=== PATIENT | female | born 1940 | race Hispanic/Latino ===

== ENCOUNTER 2019-04-11 13:00 | Inpatient (IN) | payer OTHER ==
[~2019-04-11] VITALS: Ht 152.4 cm; Wt 50.3 kg
[2019-04-11 13:02] VITALS: BP 135/69
[2019-04-11 13:23] LABS: INR 0.99 (0.85-1.15); PARTIAL THROMBOPLASTIN TIME 26.8 SEC (26.3-35.5); PROTHROMBIN TIME 10.4 SEC (9.6-11.6)
[2019-04-11] MEDS ORDERED: ATOR10 PO (14:08)
[2019-04-11] MEDS ORDERED: LEVO75TA10 PO (14:08)
[2019-04-11] MEDS ORDERED: DULO30CA52 PO (14:08)
[2019-04-11] MEDS ORDERED: LATA7.5D OU (14:08)
[2019-04-11] MEDS ORDERED: PROP10DR4 OU (14:08)
[2019-04-11] MEDS ORDERED: OMEG-108 PO (14:08)
[2019-04-11] MEDS ORDERED: GABA-529 PO ×2 (14:08)
[2019-04-17] VITALS (24 sets, daily range): BP systolic 86–134; BP diastolic 44–73
[2019-04-17] MEDS ORDERED: LACTATED RINGERS 1000ML 1,000 ML IV ONE (10:00)
[2019-04-17] MEDS: CEFAZOLIN SODIUM 1 GM VIAL ONE ×2 (10:00→13:20)
[2019-04-17] MEDS ORDERED: TRANEXAMIC ACID 1000MG/10ML IV ONE ×2 (10:44→11:00)
[2019-04-17] MEDS ORDERED: VANCOMYCIN HCL 1 GM VIAL ONE (11:13)
[2019-04-17] MEDS ORDERED: LIDOCAINE PF 2% 5ML ABBOJECT ONE (12:56)
[2019-04-17] MEDS ORDERED: DEXAMETHASONE SOD PHOSPHATE 10MG/ML 1ML VIAL ONE (12:57)
[2019-04-17] MEDS ORDERED: PROPOFOL 10 MG/ML 20ML VIAL IV ONE (12:57)
[2019-04-17] MEDS ORDERED: MIDAZOLAM HCL 1 MG/ML 2ML VIAL ONE (12:57)
[2019-04-17] MEDS ORDERED: ONDANSETRON HCL 4 MG/2 ML VIAL ONE (12:57)
[2019-04-17] MEDS ORDERED: FENTANYL CITRATE PF 50 MCG/1 ML 2ML VIAL ONE (12:58)
[2019-04-17] MEDS ORDERED: ROPIVACAINE 0.5% 5MG/ML 30ML IJ ONE (13:13)
--- NOTE | 2019-04-17 13:33 | NUR ---
pt has jason cataract lens Addendum: 04/17/19 at 1338 by BRICE DOS SANTOS RN RN Amended: Links added.
[2019-04-17] MEDS ORDERED: EPHEDRINE SULFATE 50 MG/ML AMPULE ONE (13:37)
[2019-04-17] MEDS ORDERED: ROCURONIUM 10MG/1ML SYR 10 MG/ML ML ONE (13:39)
[2019-04-17] MEDS ORDERED: NEOSTIGMINE 5MG/5ML SYR IV ONE (15:38)
[2019-04-17] MEDS ORDERED: GLYCOPYRROLATE 1 MG/5 ML SYRINGE ONE (15:38)
[2019-04-17] MEDS: SODIUM CHLORIDE 0.9% 1000ML 1,000 ML IV SCH ×3 (15:52→23:11)
[2019-04-17] MEDS ORDERED: ONDANSETRON HCL 4 MG/2 ML VIAL IVP PRN (16:00)
[2019-04-17] MEDS ORDERED: KETOROLAC TROMETHAMINE 15MG/ML IV PRN (16:00)
[2019-04-17] MEDS ORDERED: TRAMADOL HCL 50 MG TABLET PO PRN (16:00)
[2019-04-17] MEDS: ACETAMINOPHEN EXTRA STRENGTH 500 MG TABLET PO SCH ×2 (16:00→23:11)
[2019-04-17] MEDS ORDERED: MORPHINE SULFATE 4 MG/1ML SYG IVP PRN (16:00)
[2019-04-17] MEDS ORDERED: OXYCODONE HCL 5 MG TAB PO PRN (16:00)
[2019-04-17] MEDS ORDERED: ARTIFICAL TEARS SOL 15 ML OU PRN (16:00)
[2019-04-17] MEDS ORDERED: MEPERIDINE-PF 25 MG/ML SYG ONE (16:38)
[2019-04-17] MEDS: CEFAZOLIN SODIUM 1 GM VIAL IVP SCH (21:14)
[2019-04-17] MEDS: FAMOTIDINE 20MG TAB 20 MG TAB PO SCH (21:15)
[2019-04-17] MEDS: ASPIRIN 81 MG EC TAB PO SCH (21:15)
[2019-04-17] MEDS: LATANOPROST 2.5 ML DROPS OU SCH (21:16)
[2019-04-17] MEDS: GABAPENTIN 100 MG CAPSULE PO SCH (21:16)
[2019-04-18 04:00] VITALS: BP 116/53
[2019-04-18 04:01] LABS: HEMATOCRIT 29.3 % (36-48); MEAN CORPUSCULAR HEMOGLOBIN 30.3 pg (27.0-33.0); MEAN CORPUSCULAR HGB CONC 34.5 g/dL (32.0-36.0); MEAN CORPUSCULAR VOLUME 87.7 fL (79-99); PLATELET COUNT (AUTO) 262 K/uL (130-400); RED BLOOD CELL COUNT(AUTO) 3.34 MIL/uL (4.00-5.50); RED CELL DISTRIBUTION WIDTH 14.7 % (11.0-15.5); WHITE BLOOD COUNT (AUTO) 7.8 K/uL (4.8-10.8)
[2019-04-18 04:11] LABS: CREATININE 0.7 mg/dL (0.5-1.5); POTASSIUM 3.8 mmol/L (3.5-5.1)
[2019-04-18] MEDS: OXYCODONE HCL 5 MG TAB PO PRN (05:14)
[2019-04-18] MEDS: LEVOTHYROXINE 75 MCG TABLET PO SCH (05:14)
[2019-04-18] MEDS: CEFAZOLIN SODIUM 1 GM VIAL IVP SCH (05:14)
[2019-04-18 07:48] VITALS: BP 136/66
--- NOTE | 2019-04-18 08:08 | NUR ---
CALL RECD RE SNF CALL RECD FROM RN IN CONFERENCE WITH - WANTS TO KNOW WHICH SNFS ARE IN NETWORK. PT/FAMILY DO NOT WANT TO GO TO A SNF, BUT WANTS THE ORDER PLACED JUST IN CASE PT DOES NOT DO VERY WELL DURING PT. PT HAD DIFFICULTY THROUGH THE NIGHT - MAX ASSIST X2 ON BED ACUÑA FOR EXAMPLE, ADIVSED RN- TO TELL MD CURRY, SARINA, AND [facility] WILL REVIEW PT NOTES THIS AM/PM; IF NOT PROGRESSING, WILL SPEAK TO PT Addendum: 04/18/19 at 2107 by TINY TAYLOR RN CM Amended: Links added.
[2019-04-18] MEDS: DULOXETINE HCL 30 MG CAP PO SCH (09:00)
[2019-04-18 11:14] VITALS: BP 114/60
[2019-04-18] MEDS: FAMOTIDINE 20MG TAB 20 MG TAB PO SCH ×2 (11:33→20:06)
[2019-04-18] MEDS: GABAPENTIN 100 MG CAPSULE PO SCH ×2 (11:33→20:06)
[2019-04-18] MEDS: ACETAMINOPHEN EXTRA STRENGTH 500 MG TABLET PO SCH ×2 (11:34→16:42)
[2019-04-18] MEDS: POLYETHYLENE GLYCOL 3350 17 GM POWD.PACK PO SCH (11:34)
[2019-04-18] MEDS: ASPIRIN 81 MG EC TAB PO SCH ×2 (11:34→20:06)
[2019-04-18] MEDS: SODIUM CHLORIDE 0.9% 1000ML 1,000 ML IV SCH (11:52)
[2019-04-18 16:21] VITALS: BP 121/72
--- NOTE | 2019-04-18 18:08 | NUR ---
SPOKE TO PT & DAUGHTER AT BEDSIDE PT LIVES ALONE IN TOTALLY HANDICAPPED ACCESSIBLE HOME , NO STAIRS, HAS WKR/SC ETC; STATES HOME VEYR SAFE AND THAT IS WHERE SHE WOULD LIKE TO RETURN, PT HAS DOEN VEYR WELL WITH PT THIS AFTERNOON, PT S DAUGHTER AT BEDSIDE STATES HER SIS TER WILL STAY TWO WEEK, SHE WILL STAY A WEEK AND A HALF, THEN BROTHER WILL STAY A WEEK, THEN FAMILY WILL FIND OTHER CARE PROVIDER IF PT NEEDS THAT. [facility] TO PROVIDE TRANSPORT HOME DAUGHTER STATES THAT DR. OGLESBY MENTIONED THAT [facility] WOULD BE COMING TO THE HOUSE AND THAT THE OFFICE SET IT UP. EXPLAINED TO PT AND FMIALY THAT THIS CM DID NOT CALL THE OFFICE EARLY ENOUGH TO GET THE NAME OF THE HOME HEALTH BUT CM COULD CALL SUNDAY TO ENSURE THAT PT WOULD GET SEEN. VERBALIZED UNDERSTANDING AND BRISA STATED DID NOT WANT TO GO TO A FACILITY Addendum: 04/18/19 at 2112 by TINY TAYLOR RN CM Amended: Links added.
[2019-04-18 20:02] VITALS: BP 105/55
[2019-04-18] MEDS: LATANOPROST 2.5 ML DROPS OU SCH (20:06)
[2019-04-18 23:50] VITALS: BP 118/64
[2019-04-19] VITALS (7 sets, daily range): BP systolic 83–124; BP diastolic 46–62
[2019-04-19] MEDS: ACETAMINOPHEN EXTRA STRENGTH 500 MG TABLET PO SCH ×4 (00:10→19:53)
[2019-04-19] MEDS: LEVOTHYROXINE 75 MCG TABLET PO SCH (05:59)
[2019-04-19] MEDS: DULOXETINE HCL 30 MG CAP PO SCH (07:56)
[2019-04-19] MEDS: FAMOTIDINE 20MG TAB 20 MG TAB PO SCH ×2 (08:19→19:51)
[2019-04-19] MEDS: OXYCODONE HCL 5 MG TAB PO PRN (08:19)
[2019-04-19] MEDS: GABAPENTIN 100 MG CAPSULE PO SCH ×2 (08:19→19:51)
[2019-04-19] MEDS: POLYETHYLENE GLYCOL 3350 17 GM POWD.PACK PO SCH (08:19)
[2019-04-19] MEDS: ASPIRIN 81 MG EC TAB PO SCH ×2 (08:20→19:51)
--- NOTE | 2019-04-19 12:13 | NUR ---
NAUSEA PATIENT REPORTS HAVING FEELING OF NAUSEA AFTER HAVING A BOWEL MOVEMENT. ADMINISTERED PRN ZOFRAN. INFORMED PATIENT AND FAMILY AT BEDSIDE WILL CONTINUE TO MONITOR FOR THERAPEUTIC EFFECT. WHEN FEELING OF NAUSEA SUBSIDES, WILL PROCEED WITH DISCHARGE. PATIENT AND FAMILY VERBALIZED AGREEMENT AND REPLIED THEY WOULD PREFER PATIENT TO FEEL COMFORTABLE AT TIME OF DISCHARGE.
--- NOTE | 2019-04-19 13:45 | NUR ---
DISCHARGE/HOME HEALTH FAMILY AND PATIENT STATE THAT THEY DO NOT KNOW IF HOME HEALTH HAS BEEN SET UP FROM DR. OGLESBY'S OFFICE. FAMILY AND PATIENT REPORT NOT RECEIVING NOTIFICATION OF HOME HEALTH ACCEPTANCE FROM DR. OGLESBY'S OFFICE OR A HOME HEALTH COMPANY. I TOLD PATIENT AND FAMILY I WOULD LOOK INTO TRYING TO FIND OUT MORE INFORMATION REGARDING HOME HEALTH BEING SET UP.
--- NOTE | 2019-04-19 14:05 | NUR ---
[facility] FROM PATIENT H&P IN CHART FROM DR. OGLESBY'S OFFICE, DATED 04-13-2019, I DO SEE UNDER "ASSESSMENT/PLAN" REPORTS "WE WILL SET HER [PATIENT] UP WITH HOME HEALTH FOR HER THERAPY, [facility]." I CALLED MEDIA TECHNICIAN VLADISLAV AND SHE DID CLARIFY THAT [facility] IS WITHIN PATIENTS INSURANCE NETWORK. I CALLED [facility] [phone] IN ORDER TO CLARIFY IF PATIENT HAS BEEN ACCEPTED TO HOME HEALTH COMPANY. AWAITING CALLBACK.
--- NOTE | 2019-04-19 15:05 | NUR ---
[facility] NURSE SPOKE TO NURSE LOPEZ OF [facility] AND HE DID INFORM ME THAT PATIENT WAS NOT CURRENTLY ENROLLED WITH [facility]. CALLED DR. OGLESBY TO REPORT PATIENT WAS NOT ACCEPTED TO [facility]. DID ORDER TO HAVE CASE MANAGEMENT SEND REFERRAL TO [facility].
--- NOTE | 2019-04-19 16:55 | NUR ---
cm note met with pt and family, and received AZIZA and consent for release of info, for [facility] [phone]., referral faxed, spoke to mary Romano rn fabrication operator and states pt is accepted, and nurse can call report at [place]. they will visit pt on sunday.
--- NOTE | 2019-04-19 17:40 | NUR ---
DR. OGLESBY CALLED MD TO REPORT PATIENT HAS BEEN ACCEPTED TO [facility], BUT THAT PATIENTS BLOOD PRESSURE READING HAS BEEN LOW. OBTAINED AUTOMATIC BLOOD PRESSURE RESULT 83/58, MANUAL RECHECK 98/60. RECHECK BLOOD PRESSURE AROUND 30 MINUTES AFTER AND OBTAINED BLOOD PRESSURE READING OF 114/57. DR. OGLESBY'S REPLIED TO HOLD DISCHARGE, CHECK H/H, AND CONTINUE TO MONITOR PATIENTS BLOOD PRESSURE ONE MORE NIGHT. INFORMED PATIENT AND FAMILY OF DR. OGLESBY'S ORDERS TO KEEP PATIENT ONE MORE NIGHT, PATIENT AND FAMILY IN AGREEMENT.
[2019-04-19 19:34] LABS: HEMATOCRIT 27.4 % (36-48)
[2019-04-19] MEDS: LATANOPROST 2.5 ML DROPS OU SCH (19:50)
[2019-04-20 03:30] VITALS: BP 96/51
[2019-04-20] MEDS: LEVOTHYROXINE 75 MCG TABLET PO SCH (05:39)
[2019-04-20 07:55] VITALS: BP 94/51
[2019-04-20 08:38] VITALS: BP 110/59
[2019-04-20] MEDS: ASPIRIN 81 MG EC TAB PO SCH (09:06)
[2019-04-20] MEDS: FAMOTIDINE 20MG TAB 20 MG TAB PO SCH (09:06)
[2019-04-20] MEDS: DULOXETINE HCL 30 MG CAP PO SCH (09:07)
[2019-04-20] MEDS: POLYETHYLENE GLYCOL 3350 17 GM POWD.PACK PO SCH (09:07)
[2019-04-20] MEDS: GABAPENTIN 100 MG CAPSULE PO SCH (09:07)
[2019-04-20] MEDS: ACETAMINOPHEN EXTRA STRENGTH 500 MG TABLET PO SCH (09:07)
[2019-04-20 11:05] VITALS: BP 100/59
[2019-04-20] MEDS ORDERED: BISACODYL 10 MG SUPP.RECT RC PRN (16:00)
== END 2019-04-20 14:42 | disposition home health service (06) | DRG 470 ==
LOC: EDSTATUS 13:00 → DAHIP 04-17 09:08 → 4AH 04-17 17:03
PROVIDERS: ADMIT Orthopaedic Surgery; ATTEND Orthopaedic Surgery
PROC: 0SRB04Z Replacement of Left Hip Joint with Ceramic on Polyethylene Synthetic Substitute, Open Approach (ICD-10-PCS; principal; 2019-04-17 13:45)
DX: M16.12 Unilateral primary osteoarthritis, left hip (principal); E78.00 Pure hypercholesterolemia, unspecified; Z90.710 Acquired absence of both cervix and uterus; Z90.49 Acquired absence of other specified parts of digestive tract
CPT/HCPCS: 36415; 73503; 80048; 85014; 85018; 85027; 85610; 85730; 87641; 88304; 88311; 97039; A4606; G0378; J0690; J1100; J2001; J2175; J2250; J2405; J2704; J2710; J2795; J3010; J3370; J3490; J7120

== ENCOUNTER 2022-08-08 05:55 | Observation (INO) | payer OTHER ==
[2022-08-02 12:40] LABS: BASOPHILS % (AUTO) 0.5 % (0.0-5.0); EOSINOPHILS % (AUTO) 0.9 % (0.0-8.0); HEMATOCRIT 37.3 % (36-48); LYMPHOCYTES % (AUTO) 17.5 % (21.0-51.0); MEAN CORPUSCULAR HEMOGLOBIN 30.2 pg (27.0-33.0); MEAN CORPUSCULAR HGB CONC 33.8 g/dL (32.0-36.0); MEAN CORPUSCULAR VOLUME 89.4 fL (79-99); MONOCYTES % (AUTO) 7.3 % (3.0-13.0); NEUTROPHILS % (AUTO) 73.5 % (40.0-77.0); PLATELET COUNT (AUTO) 332 K/uL (130-400); RED BLOOD CELL COUNT(AUTO) 4.17 MIL/uL (4.00-5.50); RED CELL DISTRIBUTION WIDTH 13.2 % (11.0-15.5); WHITE BLOOD COUNT (AUTO) 7.8 K/uL (4.8-10.8)
[2022-08-02 12:52] LABS: CREATININE 0.7 mg/dL (0.5-1.5); POTASSIUM 3.8 mmol/L (3.5-5.1)
[2022-08-02 12:57] LABS: PROTHROMBIN TIME 10.9 SEC (9.6-11.6)
[2022-08-02 12:58] LABS: PARTIAL THROMBOPLASTIN TIME 27.5 SEC (26.3-35.5)
[2022-08-07 12:54] VITALS: BP 137/69
[2022-08-08] VITALS (28 sets, daily range): BP systolic 92–133; BP diastolic 35–70
[~2022-08-08] VITALS: Ht 154.9 cm; Wt 53.4 kg
[~2022-08-08 05:55] MED LIST: ACET-2079 PO; ATOR10 PO; LATA7.5D OP; LEVO75TA10 PO; PROP10DR4 OU
[2022-08-08] MEDS ORDERED: ROCURONIUM 10MG/1ML SYR 10 MG/ML ML IV ONE ×2 (05:57)
[2022-08-08] MEDS ORDERED: ONDANSETRON 4MG INJ IVP ONE (05:57)
[2022-08-08] MEDS ORDERED: PROPOFOL 10 MG/ML 20ML VIAL IV ONE (05:57)
[2022-08-08] MEDS ORDERED: PHENYLEPHRINE HCL 10 MG/ML 1ML VIAL IV ONE (05:57)
[2022-08-08] MEDS ORDERED: LIDOCAINE HCL-MPF 2% 10ML AMP IJ ONE (05:57)
[2022-08-08] MEDS ORDERED: LACTATED RINGERS 1000ML 1,000 ML IV SCH (06:00)
[2022-08-08] MEDS ORDERED: TRANEXAMIC ACID 1000MG/10ML IJ SCH (06:00)
[2022-08-08] MEDS: CEFAZOLIN SODIUM 2 GM VIAL IVPB SCH ×2 (06:00→09:15)
[2022-08-08] MEDS ORDERED: ROPIVICAINE 250MG+KETOROLAC 15MG+EPINEPHRINE 0.3+CLONIDINE 80 IV PRN ×5 (06:00)
[2022-08-08] MEDS ORDERED: TRANEXAMIC ACID 1000MG/10ML ONE (06:01)
[2022-08-08] MEDS ORDERED: POTASSIUM CHLORIDE 10% ELIXIR 20 MEQ/15 ML UDCUP PO PRN (10:00)
[2022-08-08] MEDS ORDERED: LIDOCAINE HCL-MPF 1% 2ML VIAL IV PRN (10:00)
[2022-08-08] MEDS ORDERED: ONDANSETRON 4MG INJ IVP PRN (10:00)
[2022-08-08] MEDS: 0.9%NACL 1000ML 1,000 ML IV SCH ×2 (10:00→21:04)
[2022-08-08] MEDS ORDERED: POTASSIUM CHLORIDE 20MEQ/100ML 100 ML IV PRN (10:00)
[2022-08-08] MEDS ORDERED: KCL 20 MEQ ERTAB PO PRN (10:00)
[2022-08-08] MEDS ORDERED: MORPHINE 4 MG SYG IVP PRN (10:00)
[2022-08-08] MEDS ORDERED: MIDAZOLAM HCL 1 MG/ML 2ML VIAL ONE (11:39)
[2022-08-08] MEDS ORDERED: FENTANYL CITRATE PF 50 MCG/1 ML 2ML VIAL ONE (11:39)
[2022-08-08] MEDS ORDERED: SUGAMMADEX SODIUM 200 MG/2 ML VIAL IV ONE (11:45)
[2022-08-08] MEDS ORDERED: MEPERIDINE-PF 25 MG/ML SYG ONE ×2 (12:19→12:39)
[2022-08-08] MEDS: ACETAMINOPHEN 1,000 MG/100 ML VIAL IV SCH ×3 (12:55→23:12)
[2022-08-08] MEDS ORDERED: HYDROMORPHONE 1 MG INJ ONE (12:59)
[2022-08-08] MEDS ORDERED: ALBUMIN (HUMAN) 5% 250 ML IV ONE (13:15)
[2022-08-08] MEDS: CEFAZOLIN SODIUM 2 GM VIAL IVP SCH ×2 (17:43→23:12)
[2022-08-08] MEDS: HYDROCODONE/ACETAMINOPHEN 5/325 MG TAB PO PRN (17:44)
[2022-08-08] MEDS: LATANOPROST 2.5 ML DROPS OP SCH (21:00)
[2022-08-08] MEDS: IBUPROFEN 800MG + NS 250ML IV SCH (21:04)
[2022-08-08] MEDS: FAMOTIDINE 20MG TAB PO SCH (21:05)
[2022-08-08] MEDS: ASPIRIN 81 MG EC TAB PO SCH (21:05)
[2022-08-09] VITALS: BP 106/50
[2022-08-09 04:00] VITALS: BP 109/44
[2022-08-09] MEDS: 0.9%NACL 1000ML 1,000 ML IV SCH (05:34)
[2022-08-09] MEDS: IBUPROFEN 800MG + NS 250ML IV SCH (05:34)
[2022-08-09 05:39] LABS: HEMATOCRIT 29.9 % (36-48); MEAN CORPUSCULAR HEMOGLOBIN 30.1 pg (27.0-33.0); MEAN CORPUSCULAR HGB CONC 32.4 g/dL (32.0-36.0); MEAN CORPUSCULAR VOLUME 92.9 fL (79-99); RED BLOOD CELL COUNT(AUTO) 3.22 MIL/uL (4.00-5.50); RED CELL DISTRIBUTION WIDTH 13.5 % (11.0-15.5)
[2022-08-09 05:50] LABS: CREATININE 0.7 mg/dL (0.5-1.5); POTASSIUM 3.8 mmol/L (3.5-5.1)
[2022-08-09 08:00] VITALS: BP 106/40
[2022-08-09] MEDS: FAMOTIDINE 20MG TAB PO SCH ×2 (08:37→19:44)
[2022-08-09] MEDS: ASPIRIN 81 MG EC TAB PO SCH ×2 (08:37→19:44)
[2022-08-09] MEDS: LEVOTHYROXINE 75 MCG TABLET PO SCH (08:37)
[2022-08-09] MEDS: HYDROCODONE/ACETAMINOPHEN 10/325 MG TAB PO PRN ×2 (08:41→15:13)
[2022-08-09] MEDS: POLYETHYLENE GLYCOL 3350 17 GM POWD.PACK PO SCH (08:42)
[2022-08-09 16:00] VITALS: BP 126/68
[2022-08-09] MEDS: HYDROCODONE/ACETAMINOPHEN 5/325 MG TAB PO PRN (16:20)
[2022-08-09] MEDS ORDERED: METOPROLOL TARTRATE 1 MG/ML 5ML VIAL IV ONE (19:30)
[2022-08-09 19:40] VITALS: BP 90/54
[2022-08-09] MEDS: LATANOPROST 2.5 ML DROPS OP SCH (19:56)
[2022-08-09] MEDS: METOPROLOL TARTRATE 25 MG TAB PO SCH (21:25)
[2022-08-09 23:34] VITALS: BP 94/51
[2022-08-10 04:08] VITALS: BP 101/64
[2022-08-10 08:00] VITALS: BP 120/52
[2022-08-10] MEDS: POLYETHYLENE GLYCOL 3350 17 GM POWD.PACK PO SCH (08:55)
[2022-08-10] MEDS: HYDROCODONE/ACETAMINOPHEN 10/325 MG TAB PO PRN (08:55)
[2022-08-10] MEDS: ASPIRIN 81 MG EC TAB PO SCH (08:56)
[2022-08-10] MEDS: METOPROLOL TARTRATE 25 MG TAB PO SCH (08:56)
[2022-08-10] MEDS: FAMOTIDINE 20MG TAB PO SCH (09:06)
[2022-08-10] MEDS: LEVOTHYROXINE 75 MCG TABLET PO SCH (09:06)
[2022-08-10 12:16] VITALS: BP 103/55
[2022-08-10] MEDS: HYDROCODONE/ACETAMINOPHEN 5/325 MG TAB PO PRN (12:29)
[2022-08-10] MEDS ORDERED: LIDOCAINE HCL-MPF 1% 2ML VIAL IV PRN (15:00)
[2022-08-10] MEDS ORDERED: POTASSIUM CHLORIDE 20MEQ/100ML 100 ML IV PRN (15:00)
[2022-08-10] MEDS ORDERED: MAGNESIUM 2GM PREMIX 50ML 50 ML IV PRN (15:00)
[2022-08-10] MEDS ORDERED: POTASSIUM CHLORIDE 10% ELIXIR 20 MEQ/15 ML UDCUP PO PRN (15:00)
[2022-08-10] MEDS ORDERED: KCL 20 MEQ ERTAB PO PRN (15:00)
[2022-08-10 16:00] VITALS: BP 103/53
[2022-08-10] MEDS ORDERED: AEC81 PO (17:03)
[2022-08-10] MEDS ORDERED: METO25 PO (17:03)
[2022-08-11] MEDS ORDERED: BISACODYL 10 MG SUPP.RECT RC PRN (10:00)
== END 2022-08-10 18:30 | disposition home or self-care (01) ==
LOC: DAH 05:55 → DAHIP 05:56 → 3AH 13:50 → 3CH 08-10 09:15
PROVIDERS: ADMIT Orthopaedic Surgery; ATTEND Orthopaedic Surgery
DX: M16.11 Unilateral primary osteoarthritis, right hip (principal); Z20.822 Contact with and (suspected) exposure to COVID-19; M21.70 Unequal limb length (acquired), unspecified site; I95.9 Hypotension, unspecified; R00.0 Tachycardia, unspecified; E03.9 Hypothyroidism, unspecified; E78.5 Hyperlipidemia, unspecified; H40.9 Unspecified glaucoma; I48.20 Chronic atrial fibrillation, unspecified; Z79.899 Other long term (current) drug therapy
CPT/HCPCS: 80048 ×2; 85025; 85610; 85730; 87426; 36415 ×3; 87641; 27130; 96376; 96365; 96366 ×2; 96375 ×2; 96368; 73503; 84443; 85027; 97161; 97039 ×4; 97116 ×4; 97530 ×2; 93005; 83735; A6260; C1776 ×5; G0378 ×52; J7030; A4606; A4649 ×4; P9045; J7120; J3010; J1170; J3490 ×3; J0171; J2250; J2704; J2405 ×2; J2175 ×2; J2795; J1885; J2370; J1741; J0735; J0690 ×3; A6219; G0168; A4930

== ENCOUNTER → 2022-09-09 | Outpatient (CLI) | payer OTHER ==
[~2022-09-09] MED LIST changes: +AEC81 PO; +METO25 PO
== END | disposition home or self-care (01) ==
LOC: SHCH 10:01
PROVIDERS: ATTEND Internal Medicine
DX: I34.0 Nonrheumatic mitral (valve) insufficiency (principal); I48.91 Unspecified atrial fibrillation
CPT/HCPCS: 93306